=== PATIENT | female | born 1935 | race Caucasian/White ===

== ENCOUNTER 2019-10-18 09:57 | Outpatient (CLI) | payer MEDICARE, BC ==
--- NOTE | 2019-10-18 10:51 | MMO ---
Bilateral MAMMO Bilat Diag [facility]. CLINICAL HISTORY: Patient is 84 years old and is seen for diagnostic exam and pain in the right breast. The patient has no family history of breast cancer. The patient has no personal history of cancer. VIEWS: The views performed were: bilateral craniocaudal with tomosynthesis; bilateral mediolateral oblique with tomosynthesis; and bilateral mediolateral with tomosynthesis. FILMS COMPARED: The present examination has been compared to prior imaging studies performed at [facility] on 10/18/2019, and at [facility] on 07/22/2016, 07/30/2018 and 08/26/2018. This study has been interpreted with the assistance of computer-aided detection. MAMMOGRAM FINDINGS: The breasts are heterogeneously dense, which could obscure a lesion on mammography. There are no suspicious masses, suspicious calcifications, or new areas of architectural distortion. IMPRESSION: THERE IS NO MAMMOGRAPHIC EVIDENCE OF MALIGNANCY. A ROUTINE FOLLOW-UP MAMMOGRAM IN 1 YEAR IS RECOMMENDED. THE RESULTS OF THIS EXAM WERE SENT TO THE PATIENT. ACR BI-RADS Category 2 - Benign finding MAMMOGRAPHY NOTE: 1. A negative mammogram report should not delay a biopsy if a dominant of clinically suspicious mass is present. 2. Approximately 10% to 15% of breast cancers are not detected by mammography. 3. Adenosis and dense breasts may obscure an underlying neoplasm. Reported by: ISABEL MCKEON MD Electonically Signed: [id number]
--- NOTE | 2019-10-18 14:03 | ULT ---
RIGHT BREAST ULTRASOUND: 10/18/19 HISTORY: Right breast pain. FINDINGS: Correlation is made with the mammogram of the same date. Sonographic evaluation of the region of pain at the 4, 5, and 6 o'clock positions of the right breast demonstrates no abnormality. IMPRESSION: BIRADS 2: Benign Finding(s) Routine annual screening mammography (for women over age 40).
== END 2019-10-18 09:58 | disposition home or self-care (01) ==
LOC: BICMAMMO 09:57
PROVIDERS: ATTEND Internal Medicine
DX: N64.52 Nipple discharge (principal)
CPT/HCPCS: 76642; 77066; G0279

== ENCOUNTER 2020-08-06 10:04 | Outpatient (CLI) | payer MEDICARE, BC | END 2020-08-06 10:05 | disposition home or self-care (01) | LOC: CTENTCT 10:04 | PROVIDERS: ATTEND Student in an Organized Health Care Education/Training Program | DX: B49 Unspecified mycosis (principal) | CPT/HCPCS: 70486 ==

== ENCOUNTER 2020-10-18 15:20 | Outpatient (CLI) | payer MEDICARE, BC | END 2020-10-18 15:21 | disposition home or self-care (01) | LOC: CTENTCT 15:20 | PROVIDERS: ATTEND Student in an Organized Health Care Education/Training Program | DX: J32.9 Chronic sinusitis, unspecified (principal) | CPT/HCPCS: 70486 ==

== ENCOUNTER 2020-11-15 09:44 | Outpatient (CLI) | payer MEDICARE, BC | END 2020-11-15 09:45 | disposition home or self-care (01) | LOC: LABBT 09:44 | PROVIDERS: ATTEND Student in an Organized Health Care Education/Training Program | DX: Z01.818 Encounter for other preprocedural examination (principal); J32.4 Chronic pansinusitis; J33.9 Nasal polyp, unspecified | CPT/HCPCS: 93005; 93010 ==

== ENCOUNTER 2020-11-20 08:17 | Observation (INO) | payer MEDICARE, BC ==
[2020-11-16 12:56] VITALS: BMI 19.5
[2020-11-20] MEDS ORDERED: AFRIN NASAL MIST 15 ML BOT ONE ×2 (08:31→09:30)
[2020-11-20] MEDS ORDERED: Acetaminophen 500 MG TAB ONE (08:55)
[2020-11-20] MEDS ORDERED: Fentanyl 100 MCG/2 ML VIAL ONE (09:16)
[2020-11-20] MEDS ORDERED: Propofol 500 MG/50 ML VIAL ONE (09:16)
[2020-11-20] MEDS ORDERED: Lidocaine 1% w/Epinephrine 1:100K 20 ML VIAL ONE (09:30)
[2020-11-20] MEDS ORDERED: Bacitracin Zinc Ointment 30 gm TUBE ONE (09:30)
[2020-11-20] MEDS ORDERED: Clindamycin/D5W 600 mg/50 ml Premix Bag ONE (09:40)
[2020-11-20] MEDS ORDERED: ePHEDrine Sulfate 50 MG/10 ML VIAL ONE ×2 (09:49→09:55)
[2020-11-20] MEDS ORDERED: Rocuronium Bromide 10 MG/ML (10ML VIAL) ONE (09:55)
[2020-11-20] MEDS ORDERED: Ketorolac Tromethamine 30 MG/ML VIAL ONE (09:55)
[2020-11-20] MEDS ORDERED: Dexamethasone 20 MG/5 ML VIAL ONE (09:55)
[2020-11-20] MEDS ORDERED: Lidocaine 1% PF 5 ML VIAL ONE (09:55)
[2020-11-20] MEDS ORDERED: PROPOFOL 200 MG/20 ML VIAL ONE (09:55)
[2020-11-20] MEDS ORDERED: Glycopyrrolate 0.2 MG/ML 5 ML SYRINGE ONE (09:55)
[2020-11-20] MEDS ORDERED: Ondansetron PF 4 MG/2 ML Vial ONE (09:55)
[2020-11-20] MEDS ORDERED: Triamcinolone 40 MG/ML VIAL ONE ×2 (11:51→13:02)
[2020-11-20] MEDS ORDERED: Ondansetron PF 4 MG/2 ML Vial IVP PRN (13:45)
[2020-11-20] MEDS ORDERED: HYDROcodone/Acetaminophen 5/325 mg Tablet PO PRN (13:46)
[2020-11-20] MEDS ORDERED: Oxymetazoline HCl 0.05% (30 ML BOT) NS PRN (13:47)
[2020-11-20] MEDS: Clindamycin/D5W 300 MG in Premix Bag 1 BAG IVPB SCH (18:52)
[2020-11-20] MEDS: Docusate 100 MG CAP PO SCH (22:06)
[2020-11-20] MEDS: Sotalol HCl 80 MG TAB PO SCH (22:07)
[2020-11-21 04:20] VITALS: TEMP 97.8
[2020-11-21] MEDS: Clindamycin/D5W 300 MG in Premix Bag 1 BAG IVPB SCH ×2 (04:50→09:11)
[2020-11-21 08:51] VITALS: BP 105/45
[2020-11-21] MEDS: Sotalol HCl 80 MG TAB PO SCH (09:10)
[2020-11-21] MEDS: Docusate 100 MG CAP PO SCH (09:10)
== END 2020-11-21 10:16 | disposition home or self-care (01) ==
LOC: SDC 08:17 → SURG B 13:34
PROVIDERS: ADMIT Student in an Organized Health Care Education/Training Program; ATTEND Student in an Organized Health Care Education/Training Program
PROC: 8E09XBZ Computer Assisted Procedure of Head and Neck Region (ICD-10-PCS; principal; 2020-11-20)
PROC: 09BT8ZZ Excision of Left Frontal Sinus, Via Natural or Artificial Opening Endoscopic (ICD-10-PCS; 2020-11-20)
PROC: 09BW8ZZ Excision of Right Sphenoid Sinus, Via Natural or Artificial Opening Endoscopic (ICD-10-PCS; 2020-11-20)
PROC: 09BX8ZZ Excision of Left Sphenoid Sinus, Via Natural or Artificial Opening Endoscopic (ICD-10-PCS; 2020-11-20)
PROC: 09BQ8ZZ Excision of Right Maxillary Sinus, Via Natural or Artificial Opening Endoscopic (ICD-10-PCS; 2020-11-20)
PROC: 09BR8ZZ Excision of Left Maxillary Sinus, Via Natural or Artificial Opening Endoscopic (ICD-10-PCS; 2020-11-20)
PROC: 09BS8ZZ Excision of Right Frontal Sinus, Via Natural or Artificial Opening Endoscopic (ICD-10-PCS; 2020-11-20)
PROC: 09TV8ZZ Resection of Left Ethmoid Sinus, Via Natural or Artificial Opening Endoscopic (ICD-10-PCS; 2020-11-20)
PROC: 09TU8ZZ Resection of Right Ethmoid Sinus, Via Natural or Artificial Opening Endoscopic (ICD-10-PCS; 2020-11-20)
PROC: 09TL8ZZ Resection of Nasal Turbinate, Via Natural or Artificial Opening Endoscopic (ICD-10-PCS; 2020-11-20)
DX: J32.4 Chronic pansinusitis (principal); J34.3 Hypertrophy of nasal turbinates; J33.8 Other polyp of sinus; J30.89 Other allergic rhinitis; I48.91 Unspecified atrial fibrillation; Z79.01 Long term (current) use of anticoagulants; Z79.82 Long term (current) use of aspirin; Z79.899 Other long term (current) drug therapy; Z88.1 Allergy status to other antibiotic agents; Z88.2 Allergy status to sulfonamides; Z88.8 Allergy status to other drugs, medicaments and biological substances; Z91.018 Allergy to other foods
CPT/HCPCS: 30140; 31259; 31267; 31276; 61782; 87070; 87075; 87077; 87186; 87205; 96365; 96376; C2625; G0378 ×2; J1100; J1885; J2405; J2704; J3010; J3301; J3490

== ENCOUNTER 2021-09-05 09:10 | Outpatient (CLI) | payer MEDICARE, BC ==
[2021-09-05 10:36] LABS: Hemoglobin 13.6 g/dL (12.0-15.5); Mean Corpuscular Hemoglobin 28.8 pg (27.0-33.0); Mean Corpuscular Volume 89.9 fl (81.6-98.3); Mean Platelet Volume 10.5 fl (7.4-10.4); Platelet Count 259 10x3/uL (150-450); RBC Distribution Width 14.7 % (11.5-14.5); Red Blood Cell (RBC) Count 4.73 10x6/uL (3.90-5.03); White Blood Cell (WBC) Count 8.2 10x3/uL (3.5-10.5)
[2021-09-05 10:51] LABS: Anion Gap 12 mmol/L (10-20); BUN (Urea Nitrogen) 18 mg/dL (9.8-20.1); Calc. Creatinine Clearance 0 mL/min (70-130); Calcium 9.5 mg/dL (7.8-10.44); Carbon Dioxide 30 mmol/L (23-31); Chloride 106 mmol/L (98-107); Glucose 99 mg/dL (83-110); Sodium 144 mmol/L (136-145)
[2021-09-05 20:47] LABS: SARS-CoV-2 PCR by NAA Not Detected (NotDetected)
== END 2021-09-05 09:11 | disposition home or self-care (01) ==
LOC: LABBT 09:10
PROVIDERS: ATTEND Student in an Organized Health Care Education/Training Program
DX: Z01.818 Encounter for other preprocedural examination (principal); J33.1 Polypoid sinus degeneration; B49 Unspecified mycosis; J32.9 Chronic sinusitis, unspecified; R09.82 Postnasal drip; J34.89 Other specified disorders of nose and nasal sinuses; R09.81 Nasal congestion; Z20.822 Contact with and (suspected) exposure to COVID-19
CPT/HCPCS: 80048; 85027; 93005; U0003; U0005; 93010

== ENCOUNTER 2021-09-10 10:55 | Day surgery (SDC) | payer MEDICARE, BC ==
[2021-09-05 14:05] VITALS: BMI 18.8
[2021-09-10] MEDS ORDERED: AFRIN NASAL MIST 15 ML BOT ONE ×3 (11:56→14:24)
[2021-09-10] MEDS ORDERED: Fentanyl 100 MCG/2 ML VIAL ONE (12:48)
[2021-09-10] MEDS ORDERED: Lidocaine 1% w/Epinephrine 1:100K 20 ML VIAL ONE (12:49)
[2021-09-10] MEDS ORDERED: Dexamethasone 20 MG/5 ML VIAL ONE (13:05)
[2021-09-10] MEDS ORDERED: ePHEDrine 50 MG/ML VIAL ONE (13:05)
[2021-09-10] MEDS ORDERED: PROPOFOL 200 MG/20 ML VIAL ONE (13:05)
[2021-09-10] MEDS ORDERED: Rocuronium Bromide 10 MG/ML (10ML VIAL) ONE (13:05)
[2021-09-10] MEDS ORDERED: Ondansetron PF 4 MG/2 ML Vial ONE (13:05)
[2021-09-10] MEDS ORDERED: EPINEPHrine 1 MG/ML AMP ONE (13:31)
[2021-09-10] MEDS ORDERED: Triamcinolone 40 MG/ML VIAL ONE (14:32)
== END 2021-09-10 16:50 | disposition home or self-care (01) ==
LOC: SDC 10:55
PROVIDERS: ATTEND Student in an Organized Health Care Education/Training Program
PROC: 09BT8ZZ Excision of Left Frontal Sinus, Via Natural or Artificial Opening Endoscopic (ICD-10-PCS; principal; 2021-09-10)
PROC: 09BS8ZZ Excision of Right Frontal Sinus, Via Natural or Artificial Opening Endoscopic (ICD-10-PCS; 2021-09-10)
PROC: 09BX8ZZ Excision of Left Sphenoid Sinus, Via Natural or Artificial Opening Endoscopic (ICD-10-PCS; 2021-09-10)
PROC: 09BW8ZZ Excision of Right Sphenoid Sinus, Via Natural or Artificial Opening Endoscopic (ICD-10-PCS; 2021-09-10)
PROC: 09BR8ZZ Excision of Left Maxillary Sinus, Via Natural or Artificial Opening Endoscopic (ICD-10-PCS; 2021-09-10)
PROC: 09BQ8ZZ Excision of Right Maxillary Sinus, Via Natural or Artificial Opening Endoscopic (ICD-10-PCS; 2021-09-10)
PROC: 09TV8ZZ Resection of Left Ethmoid Sinus, Via Natural or Artificial Opening Endoscopic (ICD-10-PCS; 2021-09-10)
PROC: 09TU8ZZ Resection of Right Ethmoid Sinus, Via Natural or Artificial Opening Endoscopic (ICD-10-PCS; 2021-09-10)
DX: J32.9 Chronic sinusitis, unspecified (principal); J33.1 Polypoid sinus degeneration; J30.89 Other allergic rhinitis; B48.8 Other specified mycoses; Z79.01 Long term (current) use of anticoagulants; Z79.82 Long term (current) use of aspirin; Z79.899 Other long term (current) drug therapy; Z88.1 Allergy status to other antibiotic agents; Z88.2 Allergy status to sulfonamides; Z88.8 Allergy status to other drugs, medicaments and biological substances; Z91.018 Allergy to other foods
CPT/HCPCS: J0171; J1100; J2405; J2704; J3010; J3301; J3490

== ENCOUNTER 2024-02-05 16:12 | Inpatient (IN) | payer MEDICARE, BC ==
[2024-02-05] MEDS ORDERED: Ondansetron ODT 4 MG TAB PO PRN (16:58)
[2024-02-05] MEDS ORDERED: Dextrose 50% Abboject 50 ML SYRINGE SLOW IVP PRN (16:58)
[2024-02-05] MEDS ORDERED: Morphine 2 MG/ML VIAL SLOW IVP PRN (16:58)
[2024-02-05] MEDS ORDERED: hydrALAZINE 20 MG/ML VIAL SLOW IVP PRN (16:58)
[2024-02-05] MEDS ORDERED: traMADol HCl 50 MG TAB PO PRN (16:58)
[2024-02-05] MEDS ORDERED: Ondansetron PF 4 MG/2 ML Vial IVP PRN (16:58)
[2024-02-05] MEDS ORDERED: Dextrose 5% in Water 1,000 ML IV PRN (16:58)
[2024-02-05] MEDS ORDERED: Glucagon 1 MG/ML KIT IM PRN (16:58)
[2024-02-05 17:11] LABS: #Basophils 0.05 10x3/uL (0.0-0.2); %Basophils 0.6 % (0.0-1.0); %Eosinophils 2.5 % (0.0-10.0); %Lymphocytes 18.3 % (21.0-51.0); %Monocytes 5.9 % (0.0-10.0); %Neutrophils 71.6 % (42.0-75.0); Hemoglobin 11.8 g/dL (12.0-16.0); Mean Corpuscular HGB CONC 31.9 g/dL (32.0-36.0); Mean Corpuscular Hemoglobin 29.3 pg (27.0-31.0); Mean Corpuscular Volume 91.8 fL (78.0-98.0); Mean Platelet Volume 10.2 fL (7.4-10.4); Platelet Count 195 10x3/uL (130-400); RBC Distribution Width 15.5 % (11.5-14.5); Red Blood Cell (RBC) Count 4.03 mill/uL (4.20-5.40)
[2024-02-05 17:24] LABS: INR-International Normal Ratio 1.2; Prothrombin Time 14.7 sec (12.0-14.7)
[2024-02-05 17:25] LABS: PTT 27.7 sec (22.9-36.1)
[2024-02-05 17:29] LABS: ALT (SGPT) 13 U/L (8-55); AST (SGOT) 18 U/L (5-34); Albumin 3.1 g/dL (3.4-4.8); Alkaline Phosphatase 73 U/L (40-110); Anion Gap 10 mmol/L (10-20); BUN (Urea Nitrogen) 14 mg/dL (9.8-20.1); Bilirubin, Total 0.4 mg/dL (0.2-1.2); Calc. Creatinine Clearance 0 mL/min (70-130); Calcium 9.4 mg/dL (7.8-10.44); Carbon Dioxide 30 mmol/L (23-31); Chloride 110 mmol/L (98-107); Estimated GFR 67; Glucose 104 mg/dL (83-110); Potassium 3.6 mmol/L (3.5-5.1); Protein, Total 6.1 g/dL (5.8-8.1); Sodium 146 mmol/L (136-145)
[2024-02-05 17:32] LABS: Troponin I Less than 0.010 ng/mL (< 0.028)
[2024-02-05] MEDS ORDERED: Ketorolac Tromethamine 30 MG (1 mL) VIAL ONE (17:41)
[2024-02-05] MEDS ORDERED: Morphine 2 MG/ML VIAL ONE (17:42)
[2024-02-05 19:29] VITALS: BMI 16.8
[2024-02-06] MEDS: Methocarbamol 500 MG TAB PO PRN (06:01)
[2024-02-06 06:44] LABS: #Basophils 0.03 10x3/uL (0.0-0.2); %Basophils 0.3 % (0.0-1.0); %Eosinophils 0.3 % (0.0-10.0); %Lymphocytes 14.3 % (21.0-51.0); %Monocytes 6.5 % (0.0-10.0); %Neutrophils 78.3 % (42.0-75.0); Hematocrit 33.9 % (36.0-47.0); Hemoglobin 10.9 g/dL (12.0-16.0); Mean Corpuscular HGB CONC 32.2 g/dL (32.0-36.0); Mean Corpuscular Hemoglobin 29.2 pg (27.0-31.0); Mean Corpuscular Volume 90.9 fL (78.0-98.0); Mean Platelet Volume 10.1 fL (7.4-10.4); Platelet Count 164 10x3/uL (130-400); RBC Distribution Width 15.5 % (11.5-14.5); Red Blood Cell (RBC) Count 3.73 mill/uL (4.20-5.40)
[2024-02-06 07:14] LABS: Anion Gap 11 mmol/L (10-20); BUN (Urea Nitrogen) 16 mg/dL (9.8-20.1); Calc. Creatinine Clearance 36 mL/min (70-130); Calcium 8.5 mg/dL (7.8-10.44); Carbon Dioxide 25 mmol/L (23-31); Chloride 109 mmol/L (98-107); Estimated GFR 73; Glucose 114 mg/dL (83-110); Potassium 3.4 mmol/L (3.5-5.1); Sodium 142 mmol/L (136-145)
[2024-02-06] MEDS ORDERED: Electrolyte Replacement Protocol 1 EACH FS SCH (09:18)
[2024-02-06] MEDS: Potassium Bicarbonate/Cit Ac 20 MEQ TAB PO SCH (09:46)
[2024-02-06 09:56] VITALS: BMI 16.8
[2024-02-06] MEDS ORDERED: Clindamycin/D5W 900 MG in Premix 1 BAG IVPB SCH (13:30)
[2024-02-06] MEDS: Acetaminophen 325 MG TAB PO PRN (15:43)
[2024-02-06] MEDS: HYDROcodone/Acetaminophen 5/325 mg Tablet PO PRN (17:00)
[2024-02-06] MEDS: Sotalol HCl 80 MG TAB PO SCH (20:31)
[2024-02-07] MEDS ORDERED: Sodium Chloride 0.9% 100 ML ONE (07:58)
[2024-02-07] MEDS ORDERED: Famotidine/PF 20 mg/2ml Vial ONE (07:59)
[2024-02-07] MEDS ORDERED: Clindamycin/D5W 900 mg/50 ml Premix Bag ONE (07:59)
[2024-02-07] MEDS ORDERED: Norepinephrine 4 MG/4 ML VIAL ONE (07:59)
[2024-02-07] MEDS ORDERED: PROPOFOL 20 ML ONE (08:02)
[2024-02-07] MEDS ORDERED: fentaNYL 50 mcg/mL 1 mL Vial ONE ×2 (08:03→08:30)
[2024-02-07] MEDS ORDERED: Lidocaine 2% PF 5 ML VIAL ONE (08:05)
[2024-02-07] MEDS ORDERED: Promethazine HCl 25 MG/ML VIAL IM PRN (08:06)
[2024-02-07] MEDS ORDERED: HYDROcodone/Acetaminophen 5/325 mg Tablet PO PRN (08:22)
[2024-02-07] MEDS ORDERED: Glycopyrrolate 0.2 MG/ML 5 ML SYRINGE ONE (08:30)
[2024-02-07] MEDS ORDERED: Dexamethasone 4 mg/ml Vial ONE (08:35)
[2024-02-07] MEDS ORDERED: Ondansetron PF 4 MG/2 ML Vial ONE (08:35)
[2024-02-07] MEDS ORDERED: Ketorolac Tromethamine 30 MG (1 mL) VIAL ONE (08:35)
[2024-02-07] MEDS ORDERED: Ondansetron HCl/PF 4 MG/2 ML Vial IVP PRN (08:39)
[2024-02-07] MEDS ORDERED: Bupivacaine PF 0.5% 30 ML VIAL ONE (08:55)
[2024-02-07] MEDS ORDERED: EPINEPHrine 1 MG/ML VIAL ONE (08:55)
[2024-02-07] MEDS: TETANUS, DIPHTHERIA TOX,ADULT (TDVAX) 0.5 ML VIAL IM ONE (13:14)
[2024-02-07] MEDS: Clindamycin/D5W 600 MG in Premix 1 BAG IVPB SCH (15:36)
[2024-02-08 05:56] LABS: #Basophils 0.03 10x3/uL (0.0-0.2); #Eosinphils Less than 0.03 10x3/uL (0.0-0.7); %Basophils 0.2 % (0.0-1.0); %Lymphocytes 10.7 % (21.0-51.0); %Monocytes 7.6 % (0.0-10.0); Hematocrit 25.4 % (36.0-47.0); Hemoglobin 8.5 g/dL (12.0-16.0); Mean Corpuscular HGB CONC 33.5 g/dL (32.0-36.0); Mean Corpuscular Hemoglobin 30.1 pg (27.0-31.0); Mean Corpuscular Volume 90.1 fL (78.0-98.0); Mean Platelet Volume 10.7 fL (7.4-10.4); Platelet Count 162 10x3/uL (130-400); RBC Distribution Width 15.7 % (11.5-14.5); Red Blood Cell (RBC) Count 2.82 mill/uL (4.20-5.40)
[2024-02-08 06:42] LABS: Anion Gap 10 mmol/L (10-20); BUN (Urea Nitrogen) 23 mg/dL (9.8-20.1); Calc. Creatinine Clearance 32 mL/min (70-130); Calcium 8.1 mg/dL (7.8-10.44); Carbon Dioxide 25 mmol/L (23-31); Chloride 104 mmol/L (98-107); Estimated GFR 64; Glucose 110 mg/dL (83-110); Potassium 4.2 mmol/L (3.5-5.1); Sodium 135 mmol/L (136-145)
[2024-02-08] MEDS: HYDROcodone/Acetaminophen 5/325 mg Tablet PO PRN (12:44)
[2024-02-09 08:47] LABS: #Basophils 0.03 10x3/uL (0.0-0.2); %Basophils 0.3 % (0.0-1.0); %Eosinophils 1.1 % (0.0-10.0); %Lymphocytes 14.3 % (21.0-51.0); %Monocytes 8.8 % (0.0-10.0); %Neutrophils 75.2 % (42.0-75.0); Hematocrit 24.4 % (36.0-47.0); Hemoglobin 7.9 g/dL (12.0-16.0); Mean Corpuscular HGB CONC 32.4 g/dL (32.0-36.0); Mean Corpuscular Hemoglobin 29.8 pg (27.0-31.0); Mean Corpuscular Volume 92.1 fL (78.0-98.0); Mean Platelet Volume 10.7 fL (7.4-10.4); Platelet Count 178 10x3/uL (130-400); RBC Distribution Width 15.9 % (11.5-14.5); Red Blood Cell (RBC) Count 2.65 mill/uL (4.20-5.40)
[2024-02-09 09:14] LABS: Anion Gap 8 mmol/L (10-20); BUN (Urea Nitrogen) 21 mg/dL (9.8-20.1); Calc. Creatinine Clearance 35 mL/min (70-130); Calcium 8.2 mg/dL (7.8-10.44); Carbon Dioxide 27 mmol/L (23-31); Chloride 107 mmol/L (98-107); Estimated GFR 71; Glucose 106 mg/dL (83-110); Potassium 3.9 mmol/L (3.5-5.1); Sodium 138 mmol/L (136-145)
[2024-02-09] MEDS: Apixaban 2.5 MG TAB PO SCH (09:25)
[2024-02-09] MEDS ORDERED: Sotalol HCl 80 MG TAB PO SCH (15:46)
[2024-02-09] MEDS: Acetaminophen/Codeine 30-300mg Tablet PO SCH (15:50)
[2024-02-09] MEDS: Acetaminophen 325 MG TAB PO SCH (15:50)
[2024-02-09] MEDS: Ibuprofen 200 MG TAB PO SCH (16:13)
[2024-02-09 16:57] LABS: Hemoglobin 7.8 g/dL (12.0-16.0)
[2024-02-09] MEDS: Ferrous Sulfate 325 MG TAB PO SCH (17:35)
[2024-02-09] MEDS: Albumin 5% 25 GM (500 mL) BOT IVPB SCH (20:09)
[2024-02-09] MEDS: Hydrocortisone Sod Succ/PF 100 mg/2 ml Vial IVP SCH (20:09)
[2024-02-09] MEDS: Famotidine 20 MG TAB PO SCH (20:10)
[2024-02-09] MEDS: Ascorbic Acid 500 mg Chewable Tablet PO SCH (20:13)
[2024-02-09] MEDS: Sotalol HCl 80 MG TAB PO SCH (21:06)
[2024-02-10] MEDS: Hydrocortisone Sod Succ/PF 100 mg/2 ml Vial IVP SCH (06:18)
[2024-02-10 11:44] VITALS: BP 116/62; TEMP 98.6
== END 2024-02-10 14:21 | DRG 481 ==
LOC: ERS 16:12 → 2NO 16:58 → SURG B 02-08 12:27
PROVIDERS: ADMIT Specialist; ATTEND Specialist
PROC: 0QS604Z Reposition Right Upper Femur with Internal Fixation Device, Open Approach (ICD-10-PCS; principal; 2024-02-07)
PROC: 3E033XZ Introduction of Vasopressor into Peripheral Vein, Percutaneous Approach (ICD-10-PCS; 2024-02-07)
PROC: 30233J1 Transfusion of Nonautologous Serum Albumin into Peripheral Vein, Percutaneous Approach (ICD-10-PCS; 2024-02-09)
DX: S72.001A Fracture of unspecified part of neck of right femur, initial encounter for closed fracture (principal); Z68.1 Body mass index [BMI] 19.9 or less, adult; W18.30XA Fall on same level, unspecified, initial encounter; Z88.8 Allergy status to other drugs, medicaments and biological substances; Z88.2 Allergy status to sulfonamides; E78.5 Hyperlipidemia, unspecified; I10 Essential (primary) hypertension; I48.91 Unspecified atrial fibrillation; Z90.89 Acquired absence of other organs; Z98.890 Other specified postprocedural states; Z79.82 Long term (current) use of aspirin; Z79.01 Long term (current) use of anticoagulants; Z79.899 Other long term (current) drug therapy; R63.6 Underweight
CPT/HCPCS: 36415; 36416; 71045; 72170; 80048; 80053; 82533; 84484; 85025; 85610; 85730; 86850; 86900; 86901; 93005; 96374; C1713; G0390; J0171; J0665; J1100; J1720; J1885; J2001; J2272; J2405; J2704; J3010; J3490; P9045